=== PATIENT | female | born 1995 | race Caucasian/White ===

== ENCOUNTER 2024-02-21 14:54 | Outpatient (CLI) | payer OTHER ==
[2024-02-21 19:26] LABS: CHLAMYDIA TRACHOMATIS DNA NEGATIVE (NEGATIVE); NEISSERIA GONORRHOEAE DNA NEGATIVE (NEGATIVE)
[2024-02-21 19:32] LABS: BACTERIAL VAGINOSIS DNA POSITIVE (NEGATIVE); CANDIDA GLABRATA DNA NEGATIVE (NEGATIVE); CANDIDA GROUP DNA NEGATIVE (NEGATIVE); CANDIDA KRUSEI DNA NEGATIVE (NEGATIVE)
[2024-02-21 19:38] LABS: TRICHOMONAS VAGINALIS DNA NEGATIVE (NEGATIVE)
[2024-02-22 06:15] LABS: HIV SCREEN 4TH GENERATION Non Reactive (Non Reactive)
[2024-02-22 08:19] LABS: HBsAG SCREEN Negative (Negative); RPR Non Reactive (Non Reactive)
[2024-02-23 00:08] LABS: HCV AB Non Reactive (Non Reactive)
== END 2024-02-21 14:55 | disposition home or self-care (01) ==
LOC: LAB 14:54
PROVIDERS: ATTEND Obstetrics & Gynecology
DX: Z11.3 Encounter for screening for infections with a predominantly sexual mode of transmission (principal)
CPT/HCPCS: 36415; 81514; 86592; 86803; 87340; 87389; 87491; 87591; 87661

== ENCOUNTER 2024-04-12 18:20 | Outpatient (CLI) | payer OTHER ==
--- NOTE | 2024-04-13 21:33 | Ultrasound Report ---
PROCEDURE: Pelvic w/Transvaginal INDICATIONS: LLQ PAIN TECHNIQUE: Real-time scanning was performed of the pelvic organs, with image documentation. Additional endovagi nal scanning was necessary due to incomplete visualization of the adnexal and endometrial structures by transabdominal scanning. COMPARISON: None. FINDINGS: Uterus: Uterus is anteverted and normal in size at 6.6 x 3.4 x 5.3 cm. The myometrium is homogeneou s. The endometrium measures heterogeneous with greatest thickness measuring 10.3 mm in combined thic kness. Multiple nabothian cysts some appearing complex. Ovaries: The right ovary measures 2.7 x 2.5 x 3.6 cm, with a calculated ovarian volume of 13.1 cc. The left ovary measures 3.6 x 2.1 x 2.2 cm, with a calculated ovarian volume of 8.9 cc. The ovaries have a normal sonographic appearance. Less than 12 follicles can be seen in each ovary. No adnexal masses are seen. No cystic lesions measuring greater than 3 cm. Other: No pathologic free abdominal or pelvic fluid. IMPRESSION: Nabothian cyst. Otherwise, unremarkable. Reviewed by: Tiffany Spivey MD on 04/13/2024 9:32 PM PDT Approved by: Tiffany Spivey MD on 04/13/2024 9:32 PM PDT Station ID: [id number]
== END 2024-04-12 18:21 | disposition home or self-care (01) ==
LOC: DI 18:20
PROVIDERS: ATTEND Physician Assistant
DX: N88.8 Other specified noninflammatory disorders of cervix uteri (principal); N92.6 Irregular menstruation, unspecified; R10.32 Left lower quadrant pain